=== PATIENT | female | born 1980 | race Caucasian/White ===

== ENCOUNTER 2018-10-24 12:05 | Inpatient (IN) | payer SELFPAY ==
[2018-10-24] MEDS ORDERED: Terbutaline 1 MG/ML SDV SUBCUT PRN (12:16)
[2018-10-24] MEDS ORDERED: Ampicillin 2 GM in Sodium Chloride 0.9% 100 ML IV ONE (12:22)
[2018-10-24] MEDS ORDERED: Sodium Chloride 0.9% 10 ML Syringe FLUSH PRN (12:23)
[2018-10-24] MEDS ORDERED: Methylergonovine 0.2 MG/1 ML Amp IM PRN (12:23)
[2018-10-24] MEDS ORDERED: Misoprostol 200 MCG Tab PO PRN (12:23)
[2018-10-24] MEDS ORDERED: Sodium Chloride 0.9% 2.5 ML Syringe FLUSH PRN (12:23)
[2018-10-24] MEDS ORDERED: Sodium Chloride 0.9% 10 ML SDV IV PRN (12:23)
[2018-10-24] MEDS ORDERED: Lidocaine 1% 50 ML MDV INJECT PRN (12:23)
[2018-10-24] MEDS ORDERED: Carboprost Tromethamine 250 MCG/1 ML Amp IM PRN (12:23)
[2018-10-24] MEDS ORDERED: Water For Irrigation,Sterile 1,000 ML Container IRR PRN (12:23)
[2018-10-24] MEDS ORDERED: Nalbuphine 10 MG/1 ML Vial IVPUSH PRN (12:23)
[2018-10-24] MEDS ORDERED: Tranexamic Acid 1,000 MG in Sodium Chloride 0.9% 100 ML IV PRN (12:23)
[2018-10-24] MEDS ORDERED: Butorphanol 1 MG/ML SDV IVPUSH PRN (12:23)
[2018-10-24] MEDS ORDERED: Oxytocin/0.9 % Sodium Chloride 30 UNIT/500 ML BAG IV SCH (12:30)
[2018-10-24] MEDS ORDERED: Lactated Ringers 1,000 ML IV SCH (12:30)
[2018-10-24] MEDS: Ampicillin 1 GM in Sodium Chloride 0.9% 50 ML IV SCH ×2 (17:45→21:33)
[2018-10-24] MEDS ORDERED: Ropivacaine HCl/PF 100 ML ONE (21:54)
[2018-10-24] MEDS ORDERED: fentaNYL 100 MCG/2 ML SDV ONE (21:56)
--- NOTE | 2018-10-24 22:28 | PCM.PREANE ---
Preanesthetic Assessment - Anesthesia/Transfusion/Family Hx Anesthesia History: Prior Anesthesia Without Reaction Family History of Anesthesia Reaction: No Transfusion History: No Prior Transfusion(s) - Physical Assessment NPO Status Date: 10/24/18 NPO Status Time: 17:00 Height: 1.57 m Weight: 78.925 kg ASA Class: 1 Mental Status: Alert & Oriented x3 Dentition: Reports: Normal Dentition - Lab Values: Laboratory Last Values WBC 7.43 K/uL (4.0-11.0) 10/24/18 12:53 RBC 4.20 M/uL (4.30-5.90) L 10/24/18 12:53 Hgb 11.3 g/dL (12.0-16.0) L 10/24/18 12:53 Hct 36.0 % (36.0-46.0) 10/24/18 12:53 MCV 85.7 fL (80.0-98.0) 10/24/18 12:53 MCH 26.9 pg (27.0-32.0) L 10/24/18 12:53 MCHC 31.4 g/dL (31.0-37.0) 10/24/18 12:53 RDW Std Deviation 47.2 fl (28.0-62.0) 10/24/18 12:53 RDW Coeff of Tang 15 % (11.0-15.0) 10/24/18 12:53 Plt Count 204 K/uL (150-400) 10/24/18 12:53 MPV 10.70 fL (7.40-12.00) 10/24/18 12:53 Nucleated RBC % 0.0 /100WBC 10/24/18 12:53 Nucleated RBCs # 0 K/uL 10/24/18 12:53 Blood Type A POSITIVE 10/24/18 12:53 Antibody Screen NEGATIVE 10/24/18 12:53 - Allergies Allergies/Adverse Reactions: Allergies Allergy/AdvReac Type Severity Reaction Status Date / Time No Known Allergies Allergy Verified 05/24/14 06:10 - Acknowledgements Anesthesia Type Planned: Epidural Pt an Appropriate Candidate for the Planned Anesthesia: Yes Alternatives and Risks of Anesthesia Discussed w Pt/Guardian: Yes Pt/Guardian Understands and Agrees with Anesthesia Plan: Yes PreAnesthesia Questionnaire HEENT History: Reports: None Cardiovascular History: Reports: Heart Murmur Respiratory History: Reports: None Gastrointestinal History: Reports: PUD Genitourinary History: Reports: UTI, Recurrent [employer] History: Reports: , Other (See Below) Musculoskeletal History: Reports: None Neurological History: Reports: None Psychiatric History: Reports: None Endocrine/Metabolic History: Reports: Obesity/BMI 30+ Hematologic History: Reports: None Dermatologic History: Reports: None - Past Surgical History Head Surgeries/Procedures: Reports: None HEENT Surgical History: Reports: Oral Surgery Other Musculoskeletal Surgeries/Procedures:: Fx coccyx x 2 - History Comment History Comment: denies etoh - HOME MEDS Home Medications: Home Meds PNV95/Ferrous Fumarate/FA [ Vitamins Tablet] 1 tab PO DAILY 04/19/16 [ History] Acetaminophen/oxyCODONE [Percocet 325-5 MG] 1 tab PO Q6H PRN #30 tablet [Rx] - CURRENT (IN HOUSE) MEDS Current Meds: Current Medications Butorphanol Tartrate (Stadol) 1 mg IVPUSH Q1H PRN PRN Reason: Pain Carboprost Tromethamine (Hemabate Ds) 250 mcg IM ASDIRECTED PRN PRN Reason: Post Hemorrhage Lactated Ringer's (Ringers, Lactated) 1,000 mls @ 150 mls/hr IV ASDIRECTED [facility] Last Admin: 10/24/18 13:25 Dose: 150 mls/hr Oxytocin/Sodium Chloride (Oxytocin 30 Unit/500 Ml-Ns) 30 unit in 500 mls @ 500 mls/hr IV TITRATE [facility] Tranexamic Acid 1,000 mg/ (Sodium Chloride) 110 mls @ 660 mls/hr IV ONETIME PRN PRN Reason: Bleeding Ampicillin Sodium 1 gm/ Sodium (Chloride) 50 mls @ 100 mls/hr IV Q4H [facility] Last Admin: 10/24/18 21:33 Dose: 100 mls/hr Lidocaine HCl (Xylocaine 1%) 50 ml INJECT ONETIME PRN PRN Reason: Laceration repair Methylergonovine Maleate (Methergine) 0.2 mg IM ASDIRECTED PRN PRN Reason: Post Hemorrhage Misoprostol (Cytotec) 200 mcg PO ONETIME PRN PRN Reason: Post Hemorrhage Nalbuphine HCl (Nubain) 10 mg IVPUSH Q1H PRN PRN Reason: Pain (severe 7-10) Sodium Chloride (Saline Flush) 10 ml FLUSH ASDIRECTED PRN PRN Reason: Keep Vein Open Sodium Chloride (Saline Flush) 2.5 ml FLUSH ASDIRECTED PRN PRN Reason: Keep Vein Open Sodium Chloride (Normal Saline) 10 ml IV ASDIRECTED PRN PRN Reason: IV Use Sterile Water (Sterile Water For Irrigation) 1,000 ml IRR ASDIRECTED PRN PRN Reason: delivery Terbutaline Sulfate (Brethine) 0.25 mg SUBCUT ASDIRECTED PRN PRN Reason: Tacysystole Discontinued Medications Fentanyl (Sublimaze) Confirm Administered Dose 100 mcg .ROUTE .STK-MED ONE Stop: 10/24/18 21:57 Ampicillin Sodium 2 gm/ Sodium (Chloride) 100 mls @ 200 mls/hr IV ONETIME ONE Stop: 10/24/18 12:51 Last Admin: 10/24/18 13:25 Dose: 200 mls/hr Ropivacaine (Naropin 0.2%) Confirm Administered Dose 100 mls @ as directed .ROUTE .STK-MED ONE Stop: 10/24/18 21:55
--- NOTE | 2018-10-24 22:32 | PCM.PRNOTE ---
- Free Text/Narrative Note: Anes Note Start 2210 Patietn requests epidural for L&D. Sitting position. Level L3-L4, midline approach. Sterile technique, chloroprep to lumbar area. Sterile fenestrated drape applied. Epidural space easilyachieved single attempt with ease using MICHELE technique. Cathreaded 4 cm with ease. 2218 test 3cc 1.5% lido with epi negative 2220 load 10 cc 0.2% ropivicaine in slow divided doses. 2224 pump started same solution at 8cc hr with 6 cc q 20 min prn bolus. Patient reports excellent analgesia. Time with patient [id number] Delio Mcclure CRNA
--- NOTE | 2018-10-25 02:45 | PCM.DEL ---
L & D Note - General Info Date of Service: 10/25/18 Mother's Due Date: 10/30/18 - Delivery Note Labor: Spontaneous, Augmented by ARM Delivery Outcome: Livebirth Delivery Method: Spontaneous Vaginal Delivery-Single Presentation: brow, nasal anterior, rotated to EDSON Nuchal Cord: None Prep: Other Anesthesia Type: None Amniotic Fluid Description: Clear Episiotomy Type: None Laceration: None Placenta: Intact, Spontaneous Cord: 3 Vessels Estimated Blood Loss: 100 [place]: Suctioned Score 1 min: 8 Score 5 min: 9 Delivery Comments (Free Text/Narrative):: liveborn female - General Info Date of Service: 10/25/18 - Patient Data Weight - Most Recent: 78.925 kg Lab Results Last 24 Hours: Laboratory Results - last 24 hr 10/24/18 10/24/18 Range/Units 12:53 12:53 WBC 7.43 (4.0-11.0) K/uL RBC 4.20 L (4.30-5.90) M/uL Hgb 11.3 L (12.0-16.0) g/dL Hct 36.0 (36.0-46.0) % MCV 85.7 (80.0-98.0) fL MCH 26.9 L (27.0-32.0) pg MCHC 31.4 (31.0-37.0) g/dL RDW Std Deviation 47.2 (28.0-62.0) fl RDW Coeff of Tang 15 (11.0-15.0) % Plt Count 204 (150-400) K/uL MPV 10.70 (7.40-12.00) fL Nucleated RBC % 0.0 /100WBC Nucleated RBCs # 0 K/uL Blood Type A POSITIVE Antibody Screen NEGATIVE Med Orders - Current: Current Medications Butorphanol Tartrate (Stadol) 1 mg IVPUSH Q1H PRN PRN Reason: Pain Carboprost Tromethamine (Hemabate Ds) 250 mcg IM ASDIRECTED PRN PRN Reason: Post Hemorrhage Lactated Ringer's (Ringers, Lactated) 1,000 mls @ 150 mls/hr IV ASDIRECTED [facility]ONIE Last Admin: 10/24/18 13:25 Dose: 150 mls/hr Oxytocin/Sodium Chloride (Oxytocin 30 Unit/500 Ml-Ns) 30 unit in 500 mls @ 500 mls/hr IV TITRATE [facility] Tranexamic Acid 1,000 mg/ (Sodium Chloride) 110 mls @ 660 mls/hr IV ONETIME PRN PRN Reason: Bleeding Ampicillin Sodium 1 gm/ Sodium (Chloride) 50 mls @ 100 mls/hr IV Q4H [facility] Last Admin: 10/24/18 21:33 Dose: 100 mls/hr Lidocaine HCl (Xylocaine 1%) 50 ml INJECT ONETIME PRN PRN Reason: Laceration repair Methylergonovine Maleate (Methergine) 0.2 mg IM ASDIRECTED PRN PRN Reason: Post Hemorrhage Misoprostol (Cytotec) 200 mcg PO ONETIME PRN PRN Reason: Post Hemorrhage Nalbuphine HCl (Nubain) 10 mg IVPUSH Q1H PRN PRN Reason: Pain (severe 7-10) Sodium Chloride (Saline Flush) 10 ml FLUSH ASDIRECTED PRN PRN Reason: Keep Vein Open Sodium Chloride (Saline Flush) 2.5 ml FLUSH ASDIRECTED PRN PRN Reason: Keep Vein Open Sodium Chloride (Normal Saline) 10 ml IV ASDIRECTED PRN PRN Reason: IV Use Sterile Water (Sterile Water For Irrigation) 1,000 ml IRR ASDIRECTED PRN PRN Reason: delivery Terbutaline Sulfate (Brethine) 0.25 mg SUBCUT ASDIRECTED PRN PRN Reason: Tacysystole Discontinued Medications Fentanyl (Sublimaze) Confirm Administered Dose 100 mcg .ROUTE .STK-MED ONE Stop: 10/24/18 21:57 Ampicillin Sodium 2 gm/ Sodium (Chloride) 100 mls @ 200 mls/hr IV ONETIME ONE Stop: 10/24/18 12:51 Last Admin: 10/24/18 13:25 Dose: 200 mls/hr Ropivacaine (Naropin 0.2%) Confirm Administered Dose 100 mls @ as directed .ROUTE .STK-MED ONE Stop: 10/24/18 21:55 - Problem List & Annotations (1) Vaginal after , delivered, current hospitalization SNOMED Code(s): 465242936 Code(s): O34.219 - MATERNAL CARE FOR UNSP TYPE SCAR FROM PREVIOUS DEL Status: Acute Current Visit: Yes - Problem List Review Problem List Initiated/Reviewed/Updated: Yes - My Orders Last 24 Hours: My Active Orders 10/24/18 12:16 Bedrest Bathroom Privileges [RC] ASDIRECTED Communication Order [RC] ASDIRECTED Notify Provider [RC] STAT Oxygen Therapy [RC] ASDIRECTED Vital Signs [RC] PER UNIT ROUTINE Terbutaline [Brethine] 0.25 mg SUBCUT ASDIRECTED PRN 10/24/18 12:23 Patient Status [ADT] Routine May Shower [RC] ASDIRECTED Notify Provider [RC] PRN Up ad Patricia [RC] ASDIRECTED Vital Signs [RC] PER UNIT ROUTINE Butorphanol [Stadol] 1 mg IVPUSH Q1H PRN Carboprost Tromethamine [Hemabate DS] 250 mcg IM ASDIRECTED PRN Lidocaine 1% [Xylocaine 1%] 50 ml INJECT ONETIME PRN Methylergonovine [Methergine] 0.2 mg IM ASDIRECTED PRN Nalbuphine [Nubain] 10 mg IVPUSH Q1H PRN Sodium Chloride 0.9% [Normal Saline] 10 ml IV ASDIRECTED PRN Sodium Chloride 0.9% [Saline Flush] 10 ml FLUSH ASDIRECTED PRN Sodium Chloride 0.9% [Saline Flush] 2.5 ml FLUSH ASDIRECTED PRN Tranexamic Acid [Cyklokapron] 1,000 mg Sodium Chloride 0.9% [Normal Saline] 100 ml IV ONETIME Water For Irrigation,Sterile [Sterile Water for Irrigation] 1,000 ml IRR ASDIRECTED PRN miSOPROStol [Cytotec] 200 mcg PO ONETIME PRN Scalp Electrode [WOMSER] Per Unit Routine Peripheral IV Insertion Adult [OM.PC] Routine Resuscitation Status Routine 10/24/18 12:30 Lactated Ringers [Ringers, Lactated] 1,000 ml IV ASDIRECTED Oxytocin/0.9 % Sodium Chloride [Oxytocin 30 Unit/500 ML-NS] 30 unit in 500 ml IV TITRATE Medication Administration Instruction [OM.PC] Q3H 10/24/18 17:30 Ampicillin 1 gm Sodium Chloride 0.9% [Normal Saline] 50 ml IV Q4H 10/24/18 Dinner Regular Diet [DIET]
[2018-10-25] MEDS ORDERED: Ibuprofen 800 MG Tab PO PRN (02:48)
[2018-10-25] MEDS ORDERED: Ibuprofen 400 MG Tab PO PRN (02:48)
[2018-10-25] MEDS ORDERED: Witch Hazel Medicated Pads 40/Jar TOP PRN (02:48)
[2018-10-25] MEDS ORDERED: Lanolin 100% Cream 7 GM Tube TOP PRN (02:48)
[2018-10-25] MEDS ORDERED: oxyCODONE 5 MG Tab PO PRN (02:48)
[2018-10-25] MEDS ORDERED: Acetaminophen 500 MG Tab PO PRN (02:48)
[2018-10-25] MEDS ORDERED: Benzocaine/Menthol 20%-0.5% Spray 78 GM Cannister TOP PRN (02:48)
[2018-10-25] MEDS ORDERED: Docusate Sodium 100 MG Cap PO PRN (02:48)
[2018-10-25] MEDS ORDERED: Bisacodyl 10 MG Supp RECTAL PRN (02:48)
--- NOTE | 2018-10-25 03:22 | OR ---
SURGEON: Evelyn Michaels M.D. DATE OF PROCEDURE: 10/25/2018 PREOPERATIVE DIAGNOSES: A 39 and 2/7th week intrauterine , prior delivery, desires vaginal trial of labor, group B strep positive. POSTOPERATIVE DIAGNOSES: A 39 and 2/7th week intrauterine , prior delivery, desires vaginal trial of labor, group B strep positive. PROCEDURE: Group B strep prophylaxis, artificial rupture of membranes, term spontaneous vaginal delivery, repair of first-degree laceration. PRIMARY SURGEON: Evelyn Michaels M.D. ANESTHESIA: Epidural. ESTIMATED BLOOD LOSS: Less than 200 mL. FINDINGS: Live born female, score of 8 and 9, weighing 4080 g, first-degree perineal laceration, placenta spontaneous, Schultze intact with 3 vessels. COMPLICATIONS: None known. DISPOSITION: Mother and baby are in LDR in good condition. BRIEF HISTORY: This is a 38-year-old female. She is G12, P9-0-2-9. She presents at 39 and 1/7th weeks' gestation to the office with new onset of severe polyhydramnios, 32 cm of fluid. She was 4 cm to 5 cm dilated, and she was told to present to Labor and Delivery. She received 2 doses of ampicillin. Membranes were stripped, and following this she was 5 to 6 cm dilated. She received her 3rd dose of ampicillin. Artificial rupture of membranes was performed. She received an epidural for pain control. She had category 1 heart tones. She progressed to complete. DESCRIPTION OF PROCEDURE: With the patient in dorsal lithotomy position, the patient pushed for a total of a 15-minute time. Initially with pushing, the bridge of the nose was noted to be directly anterior, and there was minimal descent with pushing. I was able to elevate and flex the head, and then it rotated spontaneously to a left occiput anterior position. After which, she pushed one push and delivered the head spontaneously vaginally over the perineum with support, with subsequent delivery of the infant's shoulders and body without any difficulty. The was bulb suctioned by nose and mouth, and after the cord had ceased to pulsate, it was doubly clamped and cut. Cord blood was collected for cord ABGs as well as routine cord blood sampling. Pitocin was initiated after delivery of the to assist with delivery of the placenta, which was delivered spontaneously. Mehultze intact with 3 vessels. Upon inspection of the pelvis and perineum, there were no periurethral, vaginal sidewall, cervical, or rectal lacerations. There was a very superficial first-degree perineal laceration that was enough that it was felt to require repair with a subcuticular suture of 3-0 Vicryl. Final sponge, needle, and instrument counts were correct. There were no complications. Mother and baby remained in LDR in good condition. RADHA COX /[id number]
[2018-10-25] MEDS: Acetaminophen 500 MG Tab PO PRN (06:22)
--- NOTE | 2018-10-25 06:54 | PCM.POSTAN ---
POST ANESTHESIA ASSESSMENT - MENTAL STATUS Mental Status: Alert - RESPIRATORY Respiratory Status: Respiratory Rate WNL - CARDIOVASCULAR CV Status: Pulse Rate WNL - GASTROINTESTINAL GI Status: No Symptoms - POST OP HYDRATION Hydration Status: Adequate & Stable
--- NOTE | 2018-10-25 06:54 | PCM48HPAN ---
Post Anesthesia Note - EVALUATION WITHIN 48HRS OF ANESTHETIC Vital Signs in Normal Range: Yes Patient Participated in Evaluation: Yes Respiratory Function Stable: Yes Airway Patent: Yes Cardiovascular Function Stable: Yes Hydration Status Stable: Yes Pain Control Satisfactory: Yes Nausea and Vomiting Control Satisfactory: Yes Mental Status Recovered: Yes
--- NOTE | 2018-10-25 11:42 | PCM.PNPP ---
- General Info Date of Service: 10/25/18 Functional Status: Reports: Pain Controlled, Tolerating Diet, Ambulating, Urinating - Review of Systems General: Reports: No Symptoms HEENT: Reports: No Symptoms Pulmonary: Reports: No Symptoms Cardiovascular: Reports: No Symptoms Gastrointestinal: Reports: No Symptoms Genitourinary: Reports: No Symptoms Musculoskeletal: Reports: No Symptoms Skin: Reports: No Symptoms Neurological: Reports: No Symptoms Psychiatric: Reports: No Symptoms - Patient Data Vital Signs - Most Recent: Last Vital Signs Temp 36.6 C 10/25/18 07:15 Pulse 83 10/25/18 07:15 Resp 17 10/25/18 07:15 BP 112/66 10/25/18 07:15 Pulse Ox 95 10/25/18 07:15 Weight - Most Recent: 78.925 kg Lab Results - Last 24 Hours: Laboratory Results - last 24 hr 10/24/18 10/24/18 10/25/18 Range/Units 12:53 12:53 01:59 WBC 7.43 (4.0-11.0) K/uL RBC 4.20 L (4.30-5.90) M/uL Hgb 11.3 L (12.0-16.0) g/dL Hct 36.0 (36.0-46.0) % MCV 85.7 (80.0-98.0) fL MCH 26.9 L (27.0-32.0) pg MCHC 31.4 (31.0-37.0) g/dL RDW Std Deviation 47.2 (28.0-62.0) fl RDW Coeff of Tang 15 (11.0-15.0) % Plt Count 204 (150-400) K/uL MPV 10.70 (7.40-12.00) fL Nucleated RBC % 0.0 /100WBC Nucleated RBCs # 0 K/uL Cord ABG pH 7.135 L (7.18-7.38) Cord ABG Base Excess -9 (-10--2) Cord VBG pH 7.250 (7.25-7.45) Cord VBG Base Excess -7 (-10--2) Blood Type A POSITIVE Antibody Screen NEGATIVE Med Orders - Current: Current Medications Acetaminophen (Tylenol Extra Strength) 500 mg PO Q4H PRN PRN Reason: Pain Acetaminophen (Tylenol Extra Strength) 1,000 mg PO Q4H PRN PRN Reason: Pain Last Admin: 10/25/18 06:22 Dose: 1,000 mg Benzocaine/Menthol (Dermoplast Pain Relief 20%-0.5% [place]) 78 gm TOP ASDIRECTED PRN PRN Reason: Perineal Comfort Measure Last Admin: 10/25/18 06:19 Dose: 78 gm Bisacodyl (Dulcolax) 10 mg RECTAL ONETIME PRN PRN Reason: Constipation Docusate Sodium (Colace) 100 mg PO BID PRN PRN Reason: Constipation Emollient Ointment (Lansinoh Hpa) 0 gm TOP ASDIRECTED PRN PRN Reason: Sore Nipples Ibuprofen (Motrin) 400 mg PO Q4H PRN PRN Reason: Pain Ibuprofen (Motrin) 800 mg PO Q6H PRN PRN Reason: Pain Last Admin: 10/25/18 06:20 Dose: 800 mg Oxycodone HCl (Oxycodone) 5 mg PO Q2H PRN PRN Reason: Pain Witch Loida (Tucks) 1 pad TOP ASDIRECTED PRN PRN Reason: comfort care Discontinued Medications Butorphanol Tartrate (Stadol) 1 mg IVPUSH Q1H PRN PRN Reason: Pain Carboprost Tromethamine (Hemabate Ds) 250 mcg IM ASDIRECTED PRN PRN Reason: Post Hemorrhage Fentanyl (Sublimaze) Confirm Administered Dose 100 mcg .ROUTE .STK-MED ONE Stop: 10/24/18 21:57 Ampicillin Sodium 2 gm/ Sodium (Chloride) 100 mls @ 200 mls/hr IV ONETIME ONE Stop: 10/24/18 12:51 Last Admin: 10/24/18 13:25 Dose: 200 mls/hr Lactated Ringer's (Ringers, Lactated) 1,000 mls @ 150 mls/hr IV ASDIRECTED TONIE Last Admin: 10/24/18 13:25 Dose: 150 mls/hr Oxytocin/Sodium Chloride (Oxytocin 30 Unit/500 Ml-Ns) 30 unit in 500 mls @ 500 mls/hr IV TITRATE [facility] Last Admin: 10/25/18 02:00 Dose: 500 mls/hr Tranexamic Acid 1,000 mg/ (Sodium Chloride) 110 mls @ 660 mls/hr IV ONETIME PRN PRN Reason: Bleeding Ampicillin Sodium 1 gm/ Sodium (Chloride) 50 mls @ 100 mls/hr IV Q4H [facility]ONIE Last Admin: 10/24/18 21:33 Dose: 100 mls/hr Ropivacaine (Naropin 0.2%) Confirm Administered Dose 100 mls @ as directed .ROUTE .STK-MED ONE Stop: 10/24/18 21:55 Lidocaine HCl (Xylocaine 1%) 50 ml INJECT ONETIME PRN PRN Reason: Laceration repair Methylergonovine Maleate (Methergine) 0.2 mg IM ASDIRECTED PRN PRN Reason: Post Hemorrhage Misoprostol (Cytotec) 200 mcg PO ONETIME PRN PRN Reason: Post Hemorrhage Nalbuphine HCl (Nubain) 10 mg IVPUSH Q1H PRN PRN Reason: Pain (severe 7-10) Sodium Chloride (Saline Flush) 10 ml FLUSH ASDIRECTED PRN PRN Reason: Keep Vein Open Sodium Chloride (Saline Flush) 2.5 ml FLUSH ASDIRECTED PRN PRN Reason: Keep Vein Open Sodium Chloride (Normal Saline) 10 ml IV ASDIRECTED PRN PRN Reason: IV Use Sterile Water (Sterile Water For Irrigation) 1,000 ml IRR ASDIRECTED PRN PRN Reason: delivery Last Admin: 10/25/18 06:22 Dose: 1,000 ml Terbutaline Sulfate (Brethine) 0.25 mg SUBCUT ASDIRECTED PRN PRN Reason: Tacysystole - Interaction Infant Disposition, : in Room with Family Infant Feeding: Attempted ; Nursed Fair/Poor Support Person: - Recovery Exam Fundal Level: 2 Fingerbreadths Above Umbilicus Fundal Placement: Midline Lochia Amount: Small Lochia Color: Rubra/Red - Problem List & Annotations (1) Vaginal after , delivered, current hospitalization SNOMED Code(s): 594282340 Code(s): O34.219 - MATERNAL CARE FOR UNSP TYPE SCAR FROM PREVIOUS DEL Status: Acute Current Visit: Yes - Problem List Review Problem List Initiated/Reviewed/Updated: Yes - My Orders Last 24 Hours: My Active Orders 10/24/18 12:16 Bedrest Bathroom Privileges [RC] ASDIRECTED Communication Order [RC] ASDIRECTED Notify Provider [RC] STAT Oxygen Therapy [RC] ASDIRECTED Vital Signs [RC] PER UNIT ROUTINE 10/24/18 12:23 May Shower [RC] ASDIRECTED Notify Provider [RC] PRN Up ad Patricia [RC] ASDIRECTED Vital Signs [RC] PER UNIT ROUTINE 10/25/18 02:48 Patient Status [ADT] Routine May Shower [RC] ASDIRECTED Up ad Patricia [RC] ASDIRECTED Vital Signs [RC] PER UNIT ROUTINE Acetaminophen [Tylenol Extra Strength] 1,000 mg PO Q4H PRN Acetaminophen [Tylenol Extra Strength] 500 mg PO Q4H PRN Benzocaine/Menthol [Dermoplast Pain Relief 20%-0.5% [place]] 78 gm TOP ASDIRECTED PRN Bisacodyl [Dulcolax] 10 mg RECTAL ONETIME PRN Docusate Sodium [Colace] 100 mg PO BID PRN Ibuprofen [Motrin] 400 mg PO Q4H PRN Ibuprofen [Motrin] 800 mg PO Q6H PRN Lanolin [Lansinoh HPA] See Dose Instructions TOP ASDIRECTED PRN Witch Loida [Tucks] 1 pad TOP ASDIRECTED PRN oxyCODONE 5 mg PO Q2H PRN Assess Lochia [WOMSER] Per Unit Routine Assess Uterine Involution [WOMSER] Per Unit Routine Perineal Care [OM.PC] Per Unit Routine Peripheral IV Discontinue [OM.PC] Routine Resuscitation Status Routine 10/25/18 16:00 HEMOGLOBIN/HEMATOCRIT,HH [HEME] Timed 10/25/18 Breakfast Regular Diet [DIET] - Assessment Assessment:: PPD0 after successful . Tolerating diet, nursing well. - Plan Plan:: Continue care, check H&H today and may have IV out this afternoon
[2018-10-26] MEDS: Acetaminophen 500 MG Tab PO PRN (07:48)
[2018-10-26 07:54] VITALS: BP 109/65
--- NOTE | 2018-10-26 09:39 | PCM.PNPP ---
- General Info Date of Service: 10/26/18 Functional Status: Reports: Pain Controlled, Tolerating Diet, Ambulating, Urinating - Review of Systems General: Reports: No Symptoms HEENT: Reports: No Symptoms Pulmonary: Reports: No Symptoms Cardiovascular: Reports: No Symptoms Gastrointestinal: Reports: No Symptoms Genitourinary: Reports: No Symptoms Musculoskeletal: Reports: No Symptoms Skin: Reports: No Symptoms Neurological: Reports: No Symptoms Psychiatric: Reports: No Symptoms - General Info Date of Service: 10/26/18 - Patient Data Vital Signs - Most Recent: Last Vital Signs Temp 36.8 C 10/26/18 07:00 Pulse 71 10/26/18 07:00 Resp 15 10/26/18 07:00 BP 109/65 10/26/18 07:00 Pulse Ox 97 10/26/18 07:00 Weight - Most Recent: 78.925 kg Lab Results - Last 24 Hours: Laboratory Results - last 24 hr 10/25/18 Range/Units 16:09 Hgb 10.0 L (12.0-16.0) g/dL Hct 32.1 L (36.0-46.0) % Med Orders - Current: Current Medications Acetaminophen (Tylenol Extra Strength) 500 mg PO Q4H PRN PRN Reason: Pain Acetaminophen (Tylenol Extra Strength) 1,000 mg PO Q4H PRN PRN Reason: Pain Last Admin: 10/26/18 07:48 Dose: 1,000 mg Benzocaine/Menthol (Dermoplast Pain Relief 20%-0.5% [place]) 78 gm TOP ASDIRECTED PRN PRN Reason: Perineal Comfort Measure Last Admin: 10/25/18 06:19 Dose: 78 gm Bisacodyl (Dulcolax) 10 mg RECTAL ONETIME PRN PRN Reason: Constipation Docusate Sodium (Colace) 100 mg PO BID PRN PRN Reason: Constipation Last Admin: 10/26/18 07:48 Dose: 100 mg Emollient Ointment (Lansinoh Hpa) 0 gm TOP ASDIRECTED PRN PRN Reason: Sore Nipples Ibuprofen (Motrin) 400 mg PO Q4H PRN PRN Reason: Pain Ibuprofen (Motrin) 800 mg PO Q6H PRN PRN Reason: Pain Last Admin: 10/25/18 06:20 Dose: 800 mg Oxycodone HCl (Oxycodone) 5 mg PO Q2H PRN PRN Reason: Pain Witch Loida (Tucks) 1 pad TOP ASDIRECTED PRN PRN Reason: comfort care Last Admin: 10/26/18 07:49 Dose: 1 pad Discontinued Medications Butorphanol Tartrate (Stadol) 1 mg IVPUSH Q1H PRN PRN Reason: Pain Carboprost Tromethamine (Hemabate Ds) 250 mcg IM ASDIRECTED PRN PRN Reason: Post Hemorrhage Fentanyl (Sublimaze) Confirm Administered Dose 100 mcg .ROUTE [facility] ONE Stop: 10/24/18 21:57 Ampicillin Sodium 2 gm/ Sodium (Chloride) 100 mls @ 200 mls/hr IV ONETIME ONE Stop: 10/24/18 12:51 Last Admin: 10/24/18 13:25 Dose: 200 mls/hr Lactated Ringer's (Ringers, Lactated) 1,000 mls @ 150 mls/hr IV ASDIRECTED [facility] Last Admin: 10/24/18 13:25 Dose: 150 mls/hr Oxytocin/Sodium Chloride (Oxytocin 30 Unit/500 Ml-Ns) 30 unit in 500 mls @ 500 mls/hr IV TITRATE [facility] Last Admin: 10/25/18 02:00 Dose: 500 mls/hr Tranexamic Acid 1,000 mg/ (Sodium Chloride) 110 mls @ 660 mls/hr IV ONETIME PRN PRN Reason: Bleeding Ampicillin Sodium 1 gm/ Sodium (Chloride) 50 mls @ 100 mls/hr IV Q4H [facility] Last Admin: 10/24/18 21:33 Dose: 100 mls/hr Ropivacaine (Naropin 0.2%) Confirm Administered Dose 100 mls @ as directed .ROUTE .[facility] ONE Stop: 10/24/18 21:55 Lidocaine HCl (Xylocaine 1%) 50 ml INJECT ONETIME PRN PRN Reason: Laceration repair Methylergonovine Maleate (Methergine) 0.2 mg IM ASDIRECTED PRN PRN Reason: Post Hemorrhage Misoprostol (Cytotec) 200 mcg PO ONETIME PRN PRN Reason: Post Hemorrhage Nalbuphine HCl (Nubain) 10 mg IVPUSH Q1H PRN PRN Reason: Pain (severe 7-10) Sodium Chloride (Saline Flush) 10 ml FLUSH ASDIRECTED PRN PRN Reason: Keep Vein Open Sodium Chloride (Saline Flush) 2.5 ml FLUSH ASDIRECTED PRN PRN Reason: Keep Vein Open Sodium Chloride (Normal Saline) 10 ml IV ASDIRECTED PRN PRN Reason: IV Use Sterile Water (Sterile Water For Irrigation) 1,000 ml IRR ASDIRECTED PRN PRN Reason: delivery Last Admin: 10/25/18 06:22 Dose: 1,000 ml Terbutaline Sulfate (Brethine) 0.25 mg SUBCUT ASDIRECTED PRN PRN Reason: Tacysystole - Interaction Infant Disposition, : in Room with Family Feeding: Attempted ; Nursed Fair/Poor Support Person: - Recovery Exam Fundal Tone: Firm Fundal Level: 1 Fingerbreadths Below Umbilicus Fundal Placement: Midline Lochia Amount: Scant Lochia Color: Rubra/Red Perineum Description: Other (see below) Other Perinuem Description: first degree Bladder Status: Voiding - Exam General: Alert, Oriented HEENT: Pupils Equal Neck: Supple Lungs: Normal Respiratory Effort GI/Abdominal Exam: Non-Tender, No Distention Extremities: Normal Inspection, Non-Tender, No Pedal Edema Skin: Warm Neurological: No New Focal Deficit Psy/Mental Status: Alert, Normal Affect, Normal Mood - Problem List & Annotations (1) Vaginal after , delivered, current hospitalization SNOMED Code(s): 106034923 Code(s): O34.219 - MATERNAL CARE FOR UNSP TYPE SCAR FROM PREVIOUS DEL Status: Acute Current Visit: Yes - Problem List Review Problem List Initiated/Reviewed/Updated: Yes - Assessment Assessment:: PPD1 after successful . Stable, would like to be discharged today at 1 pm - Plan Plan:: Discharge instructions reviewed, dismiss to home.
== END 2018-10-26 14:30 | disposition home or self-care (01) | DRG 807 ==
LOC: MW.OB 12:05 → MW.OBCHECK 12:05 → MW.OB 12:23 → OBSVTOIN 10-25 01:59 → MW.OB 10-25 07:48
PROVIDERS: ADMIT Obstetrics & Gynecology; ATTEND Obstetrics & Gynecology
PROC: 10E0XZZ Delivery of Products of Conception, External Approach (ICD-10-PCS; principal; 2018-10-25)
PROC: 10907ZC Drainage of Amniotic Fluid, Therapeutic from Products of Conception, Via Natural or Artificial Opening (ICD-10-PCS; 2018-10-25)
PROC: 0HQ9XZZ Repair Perineum Skin, External Approach (ICD-10-PCS; 2018-10-25)
PROC: 3E0R3BZ Introduction of Anesthetic Agent into Spinal Canal, Percutaneous Approach (ICD-10-PCS; 2018-10-25)
DX: O99.824 Streptococcus B carrier state complicating childbirth (principal); O70.0 First degree perineal laceration during delivery; O99.214 Obesity complicating childbirth; E66.9 Obesity, unspecified; O40.3XX0 Polyhydramnios, third trimester, not applicable or unspecified; Z3A.39 39 weeks gestation of pregnancy; Z37.0 Single live birth
CPT/HCPCS: 36415; 59025; 59409; 82803; 85014; 85018; 85027; 86850; 86900; 86901; A9270-GY; J0290; J2590; J2795; J3010; J7030; J7050; J7120

== ENCOUNTER 2021-12-01 04:34 | Emergency (ER) | payer SELFPAY ==
[2021-12-01 06:02] LABS: CARBON DIOXIDE,CO2 25.8 mmol/L (21.0-32.0); POTASSIUM,K 4.1 mmol/L (3.5-5.1)
[2021-12-01 06:51] VITALS: BP 110/66; PULSE 70
== END 2021-12-01 06:50 | disposition home or self-care (01) ==
LOC: MW.ED 04:34
DX: O99.892 Other specified diseases and conditions complicating childbirth (principal); R10.11 Right upper quadrant pain; Z3A.17 17 weeks gestation of pregnancy; E66.9 Obesity, unspecified; Z68.23 Body mass index [BMI] 23.0-23.9, adult; Z79.899 Other long term (current) drug therapy
CPT/HCPCS: 36415; 76805; 76805-26; 80053; 81003; 83690; 85025; 99283; 99284

== ENCOUNTER 2022-04-23 03:10 | Inpatient (IN) | payer OTHER ==
[2022-04-23] MEDS ORDERED: Sodium Chloride 0.9% 2.5 ML Syringe FLUSH PRN (03:23)
[2022-04-23] MEDS ORDERED: Methylergonovine 0.2 MG/1 ML Amp IM PRN (03:23)
[2022-04-23] MEDS ORDERED: Sodium Chloride 0.9% 10 ML Syringe FLUSH PRN (03:23)
[2022-04-23] MEDS ORDERED: Carboprost Tromethamine 250 MCG/1 ML Amp IM PRN (03:23)
[2022-04-23] MEDS ORDERED: Sodium Chloride 0.9% 20 ML SDV IV PRN (03:23)
[2022-04-23] MEDS ORDERED: Tranexamic Acid 1,000 MG in Sodium Chloride 0.9% 100 ML IV PRN ×2 (03:23→17:49)
[2022-04-23] MEDS ORDERED: Lidocaine 1% 50 ML MDV INJECT PRN (03:23)
[2022-04-23] MEDS ORDERED: Ampicillin 2 GM in Sodium Chloride 0.9% 100 ML IV ONE (03:23)
[2022-04-23] MEDS ORDERED: Misoprostol 200 MCG Tab PO PRN (03:23)
[2022-04-23] MEDS ORDERED: Water For Irrigation,Sterile 1,000 ML Container IRR PRN (03:23)
[2022-04-23] MEDS ORDERED: Butorphanol 1 MG/ML SDV IVPUSH PRN (03:23)
[2022-04-23] MEDS ORDERED: Oxytocin/0.9 % Sodium Chloride 30 UNIT/500 ML BAG IV SCH (03:30)
[2022-04-23] MEDS: Lactated Ringers 1,000 ML IV SCH ×3 (04:14→15:26)
[2022-04-23] MEDS ORDERED: Phenylephrine HCl In 0.9% NaCl 1 MG/10 ML Vial IVPUSH PRN (06:36)
[2022-04-23] MEDS ORDERED: ePHEDrine 50 MG/ML SDV IVPUSH PRN ×2 (06:36)
[2022-04-23] MEDS ORDERED: Ropivacaine HCl/PF 400 MG in Premix Bag 1 BAG EPIDUR SCH (06:45)
[2022-04-23] MEDS ORDERED: Phenylephrine HCl In 0.9% NaCl 1 MG/10 ML Vial IVPUSH SCH (06:45)
[2022-04-23] MEDS: Ampicillin 1 GM in Sodium Chloride 0.9% 50 ML IV SCH ×3 (08:00→16:07)
[2022-04-23] MEDS ORDERED: Lanolin 100% Cream 7 GM Tube TOP PRN (17:49)
[2022-04-23] MEDS ORDERED: Bisacodyl 10 MG Supp RECTAL PRN (17:49)
[2022-04-23] MEDS ORDERED: Ibuprofen 800 MG Tab PO PRN (17:49)
[2022-04-23] MEDS ORDERED: Acetaminophen 500 MG Tab PO PRN ×2 (17:49)
[2022-04-23] MEDS ORDERED: Benzocaine/Menthol 20%-0.5% Spray 78 GM Cannister TOP PRN (17:49)
[2022-04-23] MEDS ORDERED: Ibuprofen 400 MG Tab PO PRN (17:49)
[2022-04-23] MEDS ORDERED: Witch Hazel Medicated Pads 40/Jar TOP PRN (17:49)
[2022-04-23] MEDS ORDERED: Docusate Sodium 100 MG Cap PO PRN (17:49)
[2022-04-23] MEDS ORDERED: amLODIPine 5 MG Tab PO ONE (18:16)
[2022-04-24 16:48] VITALS: BP 128/77; PULSE 78
[2022-04-24] MEDS ORDERED: Ondansetron 4 MG/2 ML SDV ONE (21:34)
== END 2022-04-24 21:30 | disposition home or self-care (01) | DRG 805 ==
LOC: MW.OBCHECK 03:10 → MW.OB 03:15 → MW.OBCHECK 03:23 → MW.OB 03:23 → OBSVTOIN 17:33 → MW.OB 21:12
PROVIDERS: ADMIT Obstetrics & Gynecology; ATTEND Obstetrics & Gynecology
PROC: 10E0XZZ Delivery of Products of Conception, External Approach (ICD-10-PCS; principal; 2022-04-23)
PROC: 10907ZC Drainage of Amniotic Fluid, Therapeutic from Products of Conception, Via Natural or Artificial Opening (ICD-10-PCS; 2022-04-23)
PROC: 0HQ9XZZ Repair Perineum Skin, External Approach (ICD-10-PCS; 2022-04-23)
PROC: 3E0R3BZ Introduction of Anesthetic Agent into Spinal Canal, Percutaneous Approach (ICD-10-PCS; 2022-04-23)
PROC: 00HU33Z Insertion of Infusion Device into Spinal Canal, Percutaneous Approach (ICD-10-PCS; 2022-04-23)
DX: O26.62 Liver and biliary tract disorders in childbirth (principal); K83.1 Obstruction of bile duct; Z37.0 Single live birth; Z3A.38 38 weeks gestation of pregnancy; O99.824 Streptococcus B carrier state complicating childbirth; O70.0 First degree perineal laceration during delivery
CPT/HCPCS: 36415; 51702; 59025; 59409; 82803; 85014; 85018; 85027; 86592; 86850; 86900; 86901; A9270-GY; J0290; J2590; J7120; U0002